=== PATIENT | female | born 2005 | race American Indian/Alaskan Native ===

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

== ENCOUNTER 2025-02-25 00:01 | Inpatient (IN) | payer MEDICAID ==
[~2025-02-25 00:01] MED LIST changes: +Carboprost Tromethamine 250 MCG/1 mL Vial IM PRN; +Misoprostol 25 MCG (1/4 of 100 MCG) Tab PO PRN; +Misoprostol 50 MCG (1/2 of 100 MCG) Tab PO SCH; +Oxytocin/Lactated Ringers 30 UNIT/500 ML BAG IV SCH; +Sodium Chloride 0.9% 10 ML Syringe FLUSH PRN; -Triamcinolone Acetonide 40 MG/ML 1 ML SDV INJECT ONE; +fentaNYL 100 MCG/2 ML SDV IVPUSH PRN
[2025-02-25 00:36] LABS: PLATELET COUNT,PLT 301.0 10^3/uL (150-450); RED BLOOD CELL COUNT 3.59 10^6/uL (4.2-5.4); WHITE BLOOD CELL COUNT,WBC 8.9 10^3/uL (5.0-10.0)
[2025-02-25] MEDS: Misoprostol 50 MCG (1/2 of 100 MCG) Tab PO PRN (00:36)
[2025-02-25] MEDS: Lactated Ringers 1,000 ML IV ONE (17:13)
[2025-02-25] MEDS: Lactated Ringers 1,000 ML IV SCH (17:51)
[2025-02-25] MEDS ORDERED: ePHEDrine 50 MG/ML SDV IVPUSH PRN (18:16)
[2025-02-25] MEDS ORDERED: Ropivacaine 200 MG in Premix Bag 1 BAG EPIDUR SCH (18:30)
[2025-02-25] MEDS: Oxytocin/Normal Saline 30 UNIT/500 ML BAG IV SCH (19:05)
[2025-02-26] MEDS ORDERED: Oxytocin 10 Units/1 ML SDV IM PRN (02:46)
[2025-02-26] MEDS ORDERED: Carboprost Tromethamine 250 MCG/1 mL Vial IM PRN (02:46)
[2025-02-26] MEDS ORDERED: Sodium Chloride 0.9% 10 ML Syringe FLUSH PRN (02:46)
[2025-02-26] MEDS: diphenhydrAMINE 50 MG/ML SDV IV ONE (03:20)
[2025-02-26] MEDS: Ondansetron 4 MG/2 ML SDV IVPUSH PRN (03:22)
[2025-02-26] MEDS: Benzocaine/Menthol 20%-0.5% Spray 78 GM Cannister TOP PRN (05:23)
[2025-02-26] MEDS: Witch Hazel Medicated Pads 100/Jar TOP PRN (05:24)
[2025-02-26] MEDS: diphenhydrAMINE 50 MG/ML SDV ONE (05:29)
[2025-02-26] MEDS: Prenatal Multivitamin with Calcium/Folic Acid/Iron Tab PO SCH (08:31)
[2025-02-26 11:50] LABS: PLATELET COUNT,PLT 251.0 10^3/uL (150-450); RED BLOOD CELL COUNT 3.66 10^6/uL (4.2-5.4); WHITE BLOOD CELL COUNT,WBC 18.0 10^3/uL (5.0-10.0)
[2025-02-26] MEDS: Measles, Mumps & Rubella Vaccine 0.5 ML SDV SUBCUT ONE (13:56)
== END 2025-02-27 17:46 | disposition home or self-care (01) | DRG 768 ==
LOC: DL.OB 00:01 → OBSVTOIN 02-26 01:50
PROVIDERS: ADMIT Family Medicine; ATTEND Family Medicine
PROC: 3E0R3BZ Introduction of Anesthetic Agent into Spinal Canal, Percutaneous Approach (ICD-10-PCS; principal; 2025-02-26)
PROC: 3E0DXGC Introduction of Other Therapeutic Substance into Mouth and Pharynx, External Approach (ICD-10-PCS; principal; 2025-02-26)
PROC: 10907ZC Drainage of Amniotic Fluid, Therapeutic from Products of Conception, Via Natural or Artificial Opening (ICD-10-PCS; principal; 2025-02-26)
PROC: 10E0XZZ Delivery of Products of Conception, External Approach (ICD-10-PCS; principal; 2025-02-26)
PROC: 0UQC0ZZ Repair Cervix, Open Approach (ICD-10-PCS; principal; 2025-02-26)
DX: O99.02 Anemia complicating childbirth (principal); Z37.0 Single live birth; O71.3 Obstetric laceration of cervix; O72.1 Other immediate postpartum hemorrhage; Z3A.39 39 weeks gestation of pregnancy; Z88.0 Allergy status to penicillin; Z79.899 Other long term (current) drug therapy
CPT/HCPCS: 36415; 36430; 51702; 59409; 85027; 86850; 86900; 86901; 86920; 86922; 90707; A9270-GY; J0696; J1200; J1580; J2405; J2590; J7120; P9016